=== PATIENT | male | born 1945 | race Hispanic/Latino ===

== ENCOUNTER 2017-02-20 19:32 | Emergency (ER) | payer MEDICARE ==
[2017-02-20 21:11] VITALS: BP 135/75
== END 2017-02-20 20:50 | disposition left against medical advice (07) ==
LOC: ED 19:32
DX: S69.91XA Unspecified injury of right wrist, hand and finger(s), initial encounter (principal); Z53.21 Procedure and treatment not carried out due to patient leaving prior to being seen by health care provider